=== PATIENT | male | born 1975 | race Caucasian/White ===

== ENCOUNTER 2021-12-22 13:40 | Inpatient (IN) | payer OTHER ==
[2021-12-22 14:04] VITALS: BMI 20.9
[2021-12-22] MEDS ORDERED: MAGNESIUM CITRATE 300 ML BOTTLE PO PRN (14:52)
[2021-12-22] MEDS ORDERED: P-EPHED 60MG/TRIPROLIDI 2.5MG TABLET PO PRN (14:52)
[2021-12-22] MEDS ORDERED: METHOCARBAMOL 500 MG TABLET PO PRN (14:52)
[2021-12-22] MEDS ORDERED: IBUPROFEN 600 MG TABLET (FP) PO PRN (14:52)
[2021-12-22] MEDS ORDERED: ONDANSETRON *ODT* 4 MG TABLET SL PRN (14:52)
[2021-12-22] MEDS ORDERED: hydrOXYzine PAMOATE 25 MG CAPSULE (FP) PO PRN (14:52)
[2021-12-22] MEDS ORDERED: traZODone HCL 50 MG TABLET (FP) PO PRN (14:52)
[2021-12-22] MEDS ORDERED: DICYCLOMINE HCL 10 MG CAPSULE PO PRN (14:52)
[2021-12-22] MEDS ORDERED: NALOXONE HCL (KLOXXADO) 8 MG SPRAY NS PRN (14:52)
[2021-12-22] MEDS ORDERED: MAG HYDROX/AL HYDROX/SIMETH 30 ML UNIT-DOSE CUP PO PRN (14:52)
[2021-12-22] MEDS ORDERED: MAGNESIUM HYDROX 2400MG/30ML ORAL SUSPENSION 30 ML CUP PO PRN (14:52)
[2021-12-22] MEDS ORDERED: BENZOCAINE/MENTHOL (CHLORASEPTIC ) LOZENGE MM PRN (14:52)
[2021-12-22] MEDS ORDERED: MELATONIN 5 MG TABLETS PO PRN (14:52)
[2021-12-22] MEDS ORDERED: IBUPROFEN 400 MG TABLET (FP) PO PRN (14:52)
[2021-12-22] MEDS ORDERED: ACETAMINOPHEN 325 MG TABLET (FP) PO PRN ×2 (14:52)
[2021-12-22] MEDS ORDERED: BISMUTH SUBSALICYLATE 524 MG/30 ML PO PRN (14:52)
[2021-12-22] MEDS ORDERED: guaiFENesin 200 MG/10 ML 10 ML UNIT-DOSE CUPS PO PRN (14:52)
[2021-12-22] MEDS ORDERED: LOPERAMIDE HCL 2 MG CAPSULE PO PRN (14:52)
[2021-12-22] MEDS ORDERED: traZODone HCL 50 MG TABLET (FP) PO ONE ×2 (22:00→23:15)
[2021-12-22] MEDS: THIAMINE HCL 100 MG TABLET (FP) PO SCH (22:33)
[2021-12-23] MEDS ORDERED: PRENATAL VITAMINS W/ FOLIC ACID TABLET (FP) PO SCH (10:00)
[2021-12-23] MEDS ORDERED: methaDONE HCL 10 MG TABLET (FOR DETOX USE ONLY) PO ONE ×2 (10:14→23:15)
[2021-12-23] MEDS ORDERED: cloNIDine HCL 0.1 MG TABLET PO PRN (10:14)
[2021-12-23 11:03] LABS: HEMATOCRIT 34.4 % (35.4-49); HEMOGLOBIN 11.8 GM/dL (11.7-16.9); MCH 32.8 pg (25.7-33.7); MCHC 34.5 g/dl (32.0-35.9); MEAN CELL VOLUME 95.2 fl (80-96); MEAN PLT VOLUME 7.9 fl (7.5-11.1); PLATELET COUNT 292 10^3/uL (134-434); RBC 3.61 M/mm3 (4.00-5.60); RDW 12.4 % (11.9-15.9); WHITE BLOOD COUNT 5.2 K/mm3 (4.0-10.0)
[2021-12-23 11:11] LABS: CALCIUM 8.5 mg/dL (8.5-10.1)
[2021-12-23 11:12] LABS: ALBUMIN 2.9 g/dl (3.4-5.0); BLOOD UREA NITROGEN 10.6 mg/dL (7-18)
[2021-12-23 11:15] LABS: CREATININE 0.7 mg/dL (0.55-1.3)
[2021-12-23 11:17] LABS: BILIRUBIN,TOTAL 0.6 mg/dL (0.2-1); TOT PROT 6.4 g/dl (6.4-8.2)
[2021-12-23] MEDS: THIAMINE HCL 100 MG TABLET (FP) PO SCH (23:18)
[2021-12-24 07:21] VITALS: BP 124/84; PULSE 72; RESP 18; TEMP 97.8
[2021-12-25] MEDS ORDERED: methaDONE HCL 10 MG TABLET (FOR DETOX USE ONLY) PO ONE (10:00)
[2021-12-27] MEDS ORDERED: methaDONE HCL 10 MG TABLET (FOR DETOX USE ONLY) PO ONE (10:00)
== END 2021-12-24 07:55 | disposition left against medical advice (07) | DRG 770 ==
LOC: YASAS 13:40 → Y6N 16:14
PROVIDERS: ADMIT Allergy & Immunology; ATTEND Surgery
PROC: HZ2ZZZZ Detoxification Services for Substance Abuse Treatment (ICD-10-PCS; principal; 2021-12-22)
DX: F11.23 Opioid dependence with withdrawal (principal); F14.20 Cocaine dependence, uncomplicated; F12.20 Cannabis dependence, uncomplicated; Z59.00 Homelessness unspecified
CPT/HCPCS: 36415; 80053; 85027; 86780; C9803-CS; U0003; U0005

== ENCOUNTER 2022-11-20 11:30 | Inpatient (IN) | payer BC, OTHER ==
[2022-11-20 11:48] VITALS: BMI 23.8
[2022-11-20] MEDS ORDERED: IBUPROFEN 400 MG TABLET (FP) PO PRN (13:44)
[2022-11-20] MEDS ORDERED: ONDANSETRON *ODT* 4 MG TABLET SL PRN (13:44)
[2022-11-20] MEDS ORDERED: ACETAMINOPHEN 325 MG TABLET (FP) PO PRN (13:44)
[2022-11-20] MEDS ORDERED: BENZOCAINE/MENTHOL (CHLORASEPTIC ) LOZENGE MM PRN (13:44)
[2022-11-20] MEDS ORDERED: DICYCLOMINE HCL 10 MG CAPSULE PO PRN (13:44)
[2022-11-20] MEDS ORDERED: guaiFENesin 600 MG TABLET.ER (FP) PO PRN (13:44)
[2022-11-20] MEDS ORDERED: hydrOXYzine PAMOATE 25 MG CAPSULE (FP) PO PRN (13:44)
[2022-11-20] MEDS ORDERED: NALOXONE HCL (KLOXXADO) 8 MG SPRAY NS PRN (13:44)
[2022-11-20] MEDS ORDERED: NALOXONE HCL 0.4 MG/ML VIAL IM PRN (13:44)
[2022-11-20] MEDS ORDERED: POLYETHYLENE GLYCOL (HEALTHYLAX) 3350 17 GM PACKET PO PRN (13:44)
[2022-11-20] MEDS ORDERED: BISMUTH SUBSALICYLATE 524 MG/30 ML PO PRN (13:44)
[2022-11-20] MEDS ORDERED: METHOCARBAMOL 500 MG TABLET PO PRN (13:44)
[2022-11-20] MEDS ORDERED: LOPERAMIDE HCL 2 MG CAPSULE PO PRN (13:44)
[2022-11-20] MEDS ORDERED: MAGNESIUM HYDROX 2400MG/30ML ORAL SUSPENSION 30 ML CUP PO PRN (13:44)
[2022-11-20] MEDS ORDERED: IBUPROFEN 600 MG TABLET (FP) PO PRN (13:44)
[2022-11-20] MEDS ORDERED: MAG HYDROX/AL HYDROX/SIMETH 30 ML UNIT-DOSE CUP PO PRN (13:44)
[2022-11-20] MEDS ORDERED: BENZONATATE 200 MG CAPSULE PO PRN (13:44)
[2022-11-20] MEDS ORDERED: PRENATAL VITAMINS W/ FOLIC ACID TABLET (FP) PO SCH (13:45)
[2022-11-20] MEDS ORDERED: MELATONIN 5 MG TABLETS PO SCH (22:00)
[2022-11-20] MEDS ORDERED: THIAMINE HCL 100 MG TABLET (FP) PO SCH (22:00)
[2022-11-21 06:07] VITALS: TEMP 97.7
[2022-11-21 09:22] VITALS: BP 101/64; PULSE 50; RESP 18
[2022-11-21 11:12] LABS: HEMATOCRIT 36.4 % (35.4-49); HEMOGLOBIN 12.3 GM/dL (11.7-16.9); MCH 31.3 pg (25.7-33.7); MCHC 33.6 g/dl (32.0-35.9); MEAN PLT VOLUME 9.4 fl (7.5-11.1); PLATELET COUNT 314 10^3/uL (134-434); RBC 3.92 M/mm3 (4.00-5.60); RDW 12.7 % (11.9-15.9); WHITE BLOOD COUNT 6.4 K/mm3 (4.0-10.0)
[2022-11-21 11:19] LABS: POTASSIUM 4.1 mmol/L (3.5-5.1)
[2022-11-21 11:45] LABS: ALBUMIN 3.7 g/dl (3.4-5.0); BLOOD UREA NITROGEN 16.6 mg/dL (7-18)
[2022-11-21 11:48] LABS: CREATININE 0.9 mg/dL (0.55-1.3)
[2022-11-21 11:49] LABS: TOT PROT 7.7 g/dl (6.4-8.2)
[2022-11-21 11:51] LABS: BILIRUBIN,TOTAL 0.7 mg/dL (0.2-1)
== END 2022-11-21 10:03 | disposition home or self-care (01) | DRG 773 ==
LOC: YASAS 11:30 → Y3N 13:59
PROVIDERS: ADMIT Allergy & Immunology; ATTEND Allergy & Immunology
PROC: HZ2ZZZZ Detoxification Services for Substance Abuse Treatment (ICD-10-PCS; principal; 2022-11-20)
DX: F11.23 Opioid dependence with withdrawal (principal); F14.20 Cocaine dependence, uncomplicated; F12.20 Cannabis dependence, uncomplicated; F17.210 Nicotine dependence, cigarettes, uncomplicated; Z59.00 Homelessness unspecified
CPT/HCPCS: 36415; 80053; 85027; 86780; 87635; 87811